=== PATIENT | male | born 1985 | race Caucasian/White ===

== ENCOUNTER → 2019-07-30 15:31 | Outpatient (BNVA) | payer MEDICARE, OTHER, SELFPAY | PROVIDERS: Family Provider Family Medicine; PCP Family Medicine; Visit Provider Urology | DX: M54.5 Low back pain (principal); R31.0 Gross hematuria | CPT/HCPCS: 81001 ==

== ENCOUNTER → 2019-10-09 08:11 | Outpatient (BNVA) | payer MEDICARE, OTHER, SELFPAY | PROVIDERS: Family Provider Family Medicine; PCP Family Medicine; Visit Provider Urology | DX: R39.9 Unspecified symptoms and signs involving the genitourinary system (principal); R31.0 Gross hematuria | CPT/HCPCS: 81001 ==